=== PATIENT | female | born 1995 | race African-American/Black ===

== ENCOUNTER → 2016-11-25 | Outpatient (CLI) | payer OTHER ==
--- NOTE | 2016-11-25 17:24 | KCIC ---
PROCEDURE MR of the left knee HISTORY Left knee pain laterally. Pain for 2 months. Swelling. TECHNIQUE Routine multiplanar sequences are obtained. COMPARISON None FINDINGS No evidence of medial meniscal tear. No evidence of lateral meniscal tear. Anterior and posterior cruciate ligaments are intact. Medial collateral ligament is intact. Iliotibial band unremarkable. Fibular collateral ligament, biceps femoris tendon and popliteus tendon are intact. Extensor mechanism is intact. Small joint effusion. No acute articular cartilage defect. No bone lesion or acute fracture. No significant Vu cyst. IMPRESSION No acute abnormality or internal derangement. Electronically signed by: Tom Alvarado MD (November 25, 2016 17:23:24)
== END | disposition home or self-care (01) ==
LOC: KCIC MRI 16:42
PROVIDERS: ATTEND Family Medicine
DX: M25.562 Pain in left knee (principal)
CPT/HCPCS: 73721